=== PATIENT | male | born 1995 | race Caucasian/White ===

== ENCOUNTER 2025-01-10 13:44 | Inpatient (IN) | payer OTHER ==
[~2025-01-10] VITALS: Ht 172.7 cm; Wt 68.5 kg
[2025-01-10 13:47] VITALS: O2SAT 98
[2025-01-10] MEDS: LEVETIRACETAM 1000MG PREMIX 1,000 ML IV ONE (17:29)
[2025-01-10 17:31] LABS: BASOPHILS % 0.4 % (0.0-2.0); EOSINOPHILS % 0.2 % (0.0-5.0); HEMATOCRIT. 46.7 % (42.0-52.0); HEMOGLOBIN. 15.2 g/dL (14.0-18.0); LYMPHOCYTES % 12.4 % (20.0-50.0); MEAN PLATELET VOLUME 7.6 fl (7.4-10.4); MONOCYTES % 6.0 % (2.0-8.0); NEUTROPHILS % 81.0 % (40.0-76.0); PLATELET 265 x1000/uL (130-400); RED BLOOD CELL COUNT 6.15 mill/uL (4.7-6.1); RED CELL DISTRIBUTION WIDTH 14.0 % (11.6-14.6)
[2025-01-10 17:45] LABS: CREATININE 1.0 mg/dL (0.6-1.3); UREA NITROGEN BLOOD 5 mg/dL (9-23)
[2025-01-10] MEDS ORDERED: CLONIDINE 0.1MG TABLET PO PRN (21:00)
[2025-01-10] MEDS ORDERED: KETOROLAC 30MG/ML VIAL IV PRN (21:00)
[2025-01-10] MEDS ORDERED: MAGNESIUM/ALUMINUM HYDROXIDE/SIMETHICONE 30ML UDC PO PRN (21:00)
[2025-01-10] MEDS ORDERED: ACETAMINOPHEN 325MG TABLET PO PRN (21:00)
[2025-01-10] MEDS ORDERED: HYDROCODONE/ACETAMINOPHEN 5/325MG TABLET PO PRN (21:00)
[2025-01-10] MEDS ORDERED: ZOLPIDEM TARTRATE 5MG TABLET PO PRN (21:00)
[2025-01-10] MEDS ORDERED: ONDANSETRON HCL 4MG/2ML INJ IV PRN (21:00)
[2025-01-10] MEDS ORDERED: ENOXAPARIN 40MG/0.4ML SYR SUBCUT SCH (22:00)
[2025-01-10 23:00] VITALS: BP 113/59; PULSE 61; RESP 16; TEMP 36.6404
[2025-01-11] VITALS: BP 117/56; PULSE 65; RESP 17; TEMP 36.1; O2SAT 97
[2025-01-11 04:00] VITALS: BP 115/57; PULSE 56; RESP 18; TEMP 36.7; O2SAT 98
[2025-01-11 07:29] LABS: BASOPHILS % 0.6 % (0.0-2.0); EOSINOPHILS % 2.3 % (0.0-5.0); HEMATOCRIT. 43.5 % (42.0-52.0); HEMOGLOBIN. 13.9 g/dL (14.0-18.0); LYMPHOCYTES % 35.5 % (20.0-50.0); MEAN PLATELET VOLUME 8.0 fl (7.4-10.4); MONOCYTES % 9.7 % (2.0-8.0); NEUTROPHILS % 51.9 % (40.0-76.0); PLATELET 264 x1000/uL (130-400); RED BLOOD CELL COUNT 5.81 mill/uL (4.7-6.1); RED CELL DISTRIBUTION WIDTH 13.9 % (11.6-14.6)
[2025-01-11 07:53] LABS: CREATININE 0.9 mg/dL (0.6-1.3); UREA NITROGEN BLOOD 10 mg/dL (9-23)
[2025-01-11 08:00] VITALS: BP 106/55; PULSE 68; RESP 17; TEMP 36.5; O2SAT 100
[2025-01-11] MEDS: PANTOPRAZOLE SODIUM 40 MG/VIAL IV SCH (08:31)
[2025-01-11] MEDS: ENOXAPARIN 40MG/0.4ML SYR SUBCUT SCH (08:31)
[2025-01-11] MEDS: SODIUM CHLORIDE 0.9% 1,000 ML IV SCH (08:32)
[2025-01-11 12:40] VITALS: BP 119/55; PULSE 60; RESP 16; TEMP 36.3; O2SAT 99
[2025-01-11] MEDS ORDERED: KEPP500 PO (13:05)
[2025-01-11 13:30] VITALS: BP 119/55; PULSE 60; RESP 18; TEMP 97.4
[2025-01-11 15:14] VITALS: BP 98/52; PULSE 60; RESP 16; TEMP 36.3; O2SAT 99
[2025-01-11] MEDS ORDERED: LEVETIRACETAM 500MG TABLET PO SCH (21:00)
== END 2025-01-11 15:40 | disposition short-term general hospital (02) | DRG 53 ==
LOC: EDBD 13:56 → ER 13:56 → 6WST 17:35 → ENRESERV 20:57
PROVIDERS: ADMIT Internal Medicine; ATTEND Internal Medicine
DX: G40.909 Epilepsy, unspecified, not intractable, without status epilepticus (principal); F10.90 Alcohol use, unspecified, uncomplicated; Z71.41 Alcohol abuse counseling and surveillance of alcoholic; Y90.0 Blood alcohol level of less than 20 mg/100 ml; Z79.899 Other long term (current) drug therapy; Z91.199 Patient's noncompliance with other medical treatment and regimen due to unspecified reason
CPT/HCPCS: 36415; 80048; 80320; 82542; 84443; 85025; 93005; 96365; 99285; A4606; J1650; J2470; G0480